=== PATIENT | male | born 1960 | race Caucasian/White ===

== ENCOUNTER 2020-01-13 12:48 | Inpatient (IN) | payer MEDICAID ==
[~2020-01-13] VITALS: Ht 170.2 cm; Wt 81.0 kg
--- NOTE | 2020-01-13 13:38 | NUR ---
[id number] [phone] Monster Lopez-if going home call above.
[2020-01-13] MEDS ORDERED: LORazepam 2 mg/ml vial IV ONE (13:40)
[2020-01-13] MEDS ORDERED: normal saline 1000ML IV soln IVB ONE (13:40)
[2020-01-13] MEDS ORDERED: magnesium 2GM in 50ml NS 50 ML IV ONE (13:40)
[2020-01-13] MEDS ORDERED: levetiracetam inj 1,000 MG in normal saline 100ml IV soln 90 ML IV ONE (13:40)
[2020-01-13 14:17] LABS: EOSINOPHILS # (AUTO) 0.1 X10'3 (0-0.9); LYMPHOCYTES # (AUTO) 0.5 X10'3 (1.1-4.8); WHITE BLOOD COUNT 9.7 X10'3 (4.5-11.0)
[2020-01-13 14:19] LABS: BASOPHILS # (AUTO) 0.1 X10'3 (0-0.2); BASOPHILS % (AUTO) 1.4 % (0-1); EOSINOPHILS % (AUTO) 1.5 % (0-6); HEMATOCRIT 28.3 % (42.0-52.0); HEMOGLOBIN 9.6 g/dl (14.0-17.9); LYMPHOCYTES % (AUTO) 5.1 % (21-51); MEAN CORPUSCULAR HEMOGLOBIN 32.4 PG (27.0-31.0); MEAN CORPUSCULAR HGB CONC 33.8 g/dL (33.0-36.5); MEAN CORPUSCULAR VOLUME 95.7 FL (78-98); MEAN PLATELET VOLUME 8.3 FL (7.4-10.4); MONOCYTES # (AUTO) 0.6 X10'3 (0-0.9); MONOCYTES % (AUTO) 6.6 % (2-12); NEUTROPHILS # (AUTO) 8.3 X10'3 (1.8-7.7); NEUTROPHILS % (AUTO) 85.4 % (42-75); PLATELET COUNT 211 X10'3 (140-440); RED BLOOD COUNT 2.96 X10'6 (4.70-6.10); RED CELL DISTRIBUTION WIDTH 15.7 % (11.5-14.5)
--- NOTE | 2020-01-13 14:27 | NUR ---
PT EKG WAS NOT ABLE TO BE TAKEN BY [employer] BECAUSE PT WAS NOT ABLE TO RELAX.
--- NOTE | 2020-01-13 14:28 | NUR ---
PT TO CT SCAN ,WILL START MG WHEN PT IS BACK.
[2020-01-13 14:46] LABS: ALANINE AMINOTRANSFERASE 15 U/L (12-78); ALBUMIN 2.7 G/DL (3.4-5.0); ALBUMIN/GLOBULIN RATIO 0.7 (1.1-1.5); ALKALINE PHOSPHATASE 54 IU/L (46-116); ANION GAP 16 (8-16); ASPARTATE AMINO TRANSFERASE 24 U/L (10-37); BILIRUBIN,TOTAL 0.2 MG/DL (0.1-1.0); BLOOD UREA NITROGEN 17 MG/DL (7-18); BUN/CREATININE RATIO 7.1 (5.4-32.0); CHLORIDE 102 MMOL/L (99-107); CREATINE KINASE 193 U/L (39-308); CREATININE 2.38 MG/DL (0.60-1.10); ETHANOL < 0.010 GM/DL (0.0-0.010); GLUCOSE 126 MG/DL (70-104); SODIUM 137 MMOL/L (135-145); TOTAL CARBON DIOXIDE 18.9 MMOL/L (24-32); TOTAL PROTEIN 6.7 G/DL (6.4-8.2); eGFR 28 ML/MIN
[2020-01-13 14:51] LABS: CALCIUM 5.9 MG/DL (8.5-10.1)
[2020-01-13] MEDS ORDERED: potassium Cl 20 mEq SR tablet PO STA (15:02)
[2020-01-13] MEDS ORDERED: potassium Cl 10 mEq/100mL bag IV ONE (15:05)
[2020-01-13 15:36] LABS: CLARITY,URINE CLEAR (Clear); COLOR,URINE STRAW (Yellow); GLUCOSE, URINE NEGATIVE (Neg); KETONES,URINE NEGATIVE (Neg); LEUKOCYTE ESTERASE ,URINE NEGATIVE (Neg); NITRITES, URINE NEGATIVE (Neg); OCCULT BLOOD,URINE TRACE-INTACT (Neg); PROTEIN,URINE TRACE mg/dl (Neg); UROBILINOGEN,URINE 0.2 E.U/dL (0.2-1.0)
[2020-01-13 15:37] LABS: UA COLLECTION TYPE VOIDED
[2020-01-13 15:47] LABS: MUCUS STRANDS FEW /LPF (Neg); SQUAMOUS EPITHELIAL CELL,UR FEW /LPF (FEW)
[2020-01-13 15:48] LABS: SPERM MODERATE /HPF (NEGATIVE)
[2020-01-13 15:49] LABS: BACTERIA,URINE FEW /HPF (Neg); RBC,URINE 0-2 /HPF (0-2); WBC,URINE 0-4 /HPF (0-4)
[2020-01-13 15:50] LABS: URINE AMPHETAMINE SCREEN NEGATIVE (Neg); URINE BARBITUATE SCREEN NEGATIVE (Neg); URINE BENZODIAZEPINES SCREEN NEGATIVE (Neg); URINE CANNABINOID SCREEN NEGATIVE (Neg); URINE COCAINE SCREEN NEGATIVE (Neg); URINE METHADONE SCREEN NEGATIVE (Neg); URINE OPIATE SCREEN NEGATIVE (Neg); URINE PHENCYCLIDINE SCREEN NEGATIVE (Neg)
[2020-01-13] MEDS ORDERED: magnesium 4gm in 100ml NS 100 ML IV PRN ×2 (16:00→20:00)
[2020-01-13] MEDS ORDERED: mag hydrox/Alum hydrox/simeth 30ml oral suspension PO PRN (16:00)
[2020-01-13] MEDS ORDERED: acetaminophen 325mg tablet PO PRN ×2 (16:00)
[2020-01-13] MEDS ORDERED: ondansetron/PF 4mg/2ml inj IV PRN (16:00)
[2020-01-13] MEDS ORDERED: magnesium 2GM in 50ml NS 50 ML IV PRN ×2 (16:00→20:00)
[2020-01-13] MEDS ORDERED: calcium chloride 100 MG/1 ML inj IV ONE (16:00)
[2020-01-13] MEDS ORDERED: potassium CL 10mEq/100ml bag 100 ML IV PRN ×2 (16:00)
[2020-01-13] MEDS ORDERED: potassium Cl 20 mEq SR tablet PO PRN (16:00)
[2020-01-13] MEDS ORDERED: haloperidol 5mg tablet PO PRN (16:20)
[2020-01-13] MEDS ORDERED: LORazepam 2 mg/ml vial IV PRN (16:20)
[2020-01-13] MEDS ORDERED: haloperidol lactate 5mg/ml inj IM PRN (16:20)
[2020-01-13] MEDS ORDERED: thiamine inj. 100 MG in normal saline 100ml IV soln 100 ML IV ONE (16:20)
[2020-01-13] MEDS ORDERED: QUET200T30 PO ×2 (16:21)
[2020-01-13] MEDS ORDERED: ALBU18HF2 INH (16:21)
[2020-01-13] MEDS ORDERED: ZOLP10TA PO (16:21)
[2020-01-13] MEDS ORDERED: PANT40TA4 PO (16:21)
[2020-01-13] MEDS ORDERED: GLIP10TA11 PO (16:21)
[2020-01-13] MEDS ORDERED: IBUP-1985 PO (16:21)
[2020-01-13] MEDS ORDERED: HYDR12.55 PO (16:21)
[2020-01-13] MEDS ORDERED: BENA20TA82 PO (16:21)
[2020-01-13 16:28] LABS: MAGNESIUM 0.5 MG/DL (1.5-2.4)
--- NOTE | 2020-01-13 16:32 | NUR ---
dr leger at bedside clarified the order of ca whether to give iv push or dilute in 100 ml of n.s as per md give direct it does not matter will dilute it in 10 cc and give over 10 mins as per pharmacist recommendation.
[2020-01-13] MEDS: normal saline 1000ml 1,000 ML IV SCH (16:42)
--- NOTE | 2020-01-13 16:51 | NUR ---
pt calicum diluted in 100 ml of n.s as it can burna s per nurse story and now its running per gravity.
[2020-01-13] MEDS ORDERED: TRIA60LO11 TOP (17:07)
[2020-01-13] MEDS ORDERED: INSU100I31 SQ (17:07)
[2020-01-13] MEDS ORDERED: MESSAGE TO PHARMACY PO ONE (17:15)
[2020-01-13] MEDS ORDERED: dextrose ORAL solution 15 GM/59 ML bottle PO PRN ×2 (17:15)
[2020-01-13] MEDS ORDERED: glucagon, human recombinant 1mg kit SUBCUT PRN (17:15)
[2020-01-13] MEDS ORDERED: dextrose 50%-water 50ml dispensing syringe IV PRN ×2 (17:15)
[2020-01-13] MEDS ORDERED: insulin Lispro (HumaLOG) vial - multi-dose SQ SCH (17:15)
[2020-01-13 17:45] LABS: HEMOGLOBIN A1C 6.2 % (4.5-6.2)
--- NOTE | 2020-01-13 18:03 | NUR ---
called to give report as per staff its time for change shift,unable to give report.will call back later ,charge nurse radha is aware.
--- NOTE | 2020-01-13 18:27 | NUR ---
Patient in room ED 10. I have received report from LELE Wilhelm and had the opportunity to ask questions and awaiting patient arrival to 302.
[2020-01-13 18:30] VITALS: BP 135/72
--- NOTE | 2020-01-13 19:00 | NUR ---
PATIENT UP TO FLOOR AT 1830. AMBULATED TO BED WITH OUT DIFFICULTY. SLIGHTLY SOB, BUT SATING WELL AT 98 ON ROOM AIR. BELONGINGS PLACED IN BEDSIDE TABLE AND CLOSET. PLACED ON [employer] 58 AND IN SINUS ARRHYTHMIA WITH PROLONGED QT >0.50. PATIENT ALERT AND ORIENTED TO PERSON, PLACE, TIME, AND EVENTS. WILL CONTINUE TO MONITOR CLOSELY.
--- NOTE | 2020-01-13 19:08 | NUR ---
1600 Q4H NEUROCHECK NOT COMPLETED BY LELE RODRIGUEZ IN ED. 1700 BLOOD GLUCOSE CHECK ALSO NOT COMPLETED/ PERFORMED BY SAID RN IN ED. YACHT MASTER NOTIFIED.
--- NOTE | 2020-01-13 19:46 | NUR ---
15 G ORAL GLUCOSE ADMINISTERED. WILL RECHECK BG IN 15 MIN PER PROTOCOL. BOTTLE TESTER AWARE.
[2020-01-13] MEDS: K and/or MAG REPLACEMENT MC SCH (20:00)
--- NOTE | 2020-01-13 20:05 | NUR ---
192 BLOOD GLUCOSE 67. PATIENT HAD NOT EATEN- DINNER TRAY EATEN AND CONSUMED 75%. RECHECKED BLOOD GLUCOSE AT 1939 AND WAS 69. 15 GM ORAL GLUCOSE SHOT ADMINISTERED. BLOOD GLUCOSE AT 1999 127. WILL CONTINUE TO MONITOR CLOSELY.
[2020-01-13] MEDS: insulin glargine (Lantus) pen - multi-dose SQ SCH (21:00)
[2020-01-13] MEDS: magnesium Cl slow-release 64mg tablet PO PRN (21:29)
[2020-01-13] MEDS: quetiapine 100mg tablet PO SCH (21:31)
[2020-01-13] MEDS: potassium Cl 20 mEq SR tablet PO PRN (21:32)
[2020-01-13] MEDS: zolpidem 5mg tablet PO PRN (21:34)
[2020-01-13] MEDS: levetiracetam-NS 1000mg/100ml 100 ML IV SCH (21:35)
[2020-01-13] MEDS: triamcinolone acet 0.1% cream 15gm TP SCH (21:35)
--- NOTE | 2020-01-13 22:13 | NUR ---
NONADMIN LANTUS. PATIENT ON HYPER/HYPOGLYCEMIC PROTOCOL AND HAS NOT MET. BLOOD GLUCOSE 127 HS. WILL CONTINUE TO MONITOR CLOSELY.
[2020-01-13 23:00] VITALS: BP 97/54
[2020-01-14] MEDS: normal saline 1000ml 1,000 ML IV SCH ×3 (01:58→21:58)
[2020-01-14] MEDS: potassium Cl 20 mEq SR tablet PO PRN ×2 (02:05→05:40)
[2020-01-14 02:06] VITALS: BP 97/57
[2020-01-14 05:42] LABS: ALANINE AMINOTRANSFERASE 12 U/L (12-78); ALBUMIN 2.2 G/DL (3.4-5.0); ALBUMIN/GLOBULIN RATIO 0.7 (1.1-1.5); ALKALINE PHOSPHATASE 47 IU/L (46-116); AMYLASE 87 U/L (25-115); ANION GAP 13 (8-16); ASPARTATE AMINO TRANSFERASE 16 U/L (10-37); BILIRUBIN,TOTAL 0.2 MG/DL (0.1-1.0); BLOOD UREA NITROGEN 14 MG/DL (7-18); BUN/CREATININE RATIO 7.5 (5.4-32.0); CALCIUM 6.1 MG/DL (8.5-10.1); CHLORIDE 111 MMOL/L (99-107); CREATININE 1.86 MG/DL (0.60-1.10); GLUCOSE 67 MG/DL (70-104); LIPASE 705 U/L (73-393); MAGNESIUM 1.4 MG/DL (1.5-2.4); PHOSPHORUS 3.9 MG/DL (2.3-4.5); POTASSIUM 3.6 MMOL/L (3.5-5.1); SODIUM 142 MMOL/L (135-145); TOTAL CARBON DIOXIDE 18.4 MMOL/L (24-32); TOTAL PROTEIN 5.5 G/DL (6.4-8.2); eGFR 38 ML/MIN
[2020-01-14 05:50] LABS: % IRON SATURATION 19 % (11-46); IRON 44 UG/DL (53-167); TOTAL IRON BINDING CAPACITY 228 UG/DL (259-388)
[2020-01-14 06:00] VITALS: BP 85/51
[2020-01-14 06:20] LABS: HEMOGLOBIN 8.3 g/dl (14.0-17.9); MEAN CORPUSCULAR HEMOGLOBIN 32.2 PG (27.0-31.0); MEAN CORPUSCULAR HGB CONC 33.2 g/dL (33.0-36.5); MEAN CORPUSCULAR VOLUME 97.2 FL (78-98); MEAN PLATELET VOLUME 8.5 FL (7.4-10.4); PLATELET COUNT 174 X10'3 (140-440); RED BLOOD COUNT 2.57 X10'6 (4.70-6.10); RED CELL DISTRIBUTION WIDTH 16.1 % (11.5-14.5); WHITE BLOOD COUNT 4.5 X10'3 (4.5-11.0)
--- NOTE | 2020-01-14 06:20 | NUR ---
Patient in room PCU 3027. I have received report from Gama ROYAL and had the opportunity to ask questions and assume patient care.
--- NOTE | 2020-01-14 06:35 | NUR ---
250 ML NURSING BOLUS ADMINISTERED. MAP OF 62. WILL RECHECK BP ONCE INFUSED. Addendum: 01/14/20 at 0643 by Mary Johnson RN 90/59 (69) HR 110
--- NOTE | 2020-01-14 06:44 | NUR ---
Problems reprioritized. Patient report given, questions answered & plan of care reviewed with LELE ROE.
[2020-01-14 07:35] LABS: ANISOCYTOSIS 1+; PLATELET ESTIMATE NORMAL; TOTAL CELLS COUNTED 100
[2020-01-14] MEDS: levetiracetam-NS 1000mg/100ml 100 ML IV SCH ×2 (07:50→21:01)
[2020-01-14] MEDS: magnesium Cl slow-release 64mg tablet PO PRN ×2 (07:52→23:31)
[2020-01-14] MEDS: pantoprazole 40mg Tablet.DR PO SCH (07:53)
[2020-01-14] MEDS: quetiapine 100mg tablet PO SCH ×2 (07:53→21:01)
[2020-01-14] MEDS: triamcinolone acet 0.1% cream 15gm TP SCH ×2 (08:00→21:01)
[2020-01-14] MEDS: K and/or MAG REPLACEMENT MC SCH ×2 (08:00→20:00)
[2020-01-14] MEDS ORDERED: pantoprazole 40mg Tablet.DR PO SCH (08:00)
[2020-01-14] MEDS ORDERED: folic acid 1mg/0.2ml inj IV SCH (08:00)
[2020-01-14] MEDS ORDERED: thiamine inj. 100 MG in normal saline 100ml IV soln 100 ML IV SCH (08:00)
[2020-01-14] MEDS ORDERED: MVI, adult No.4 with vit. K 10 ML in dextrose 5% water 500ml 500 ML IV SCH ×2 (08:00)
[2020-01-14 11:00] VITALS: BP 98/55
--- NOTE | 2020-01-14 11:35 | NUR ---
Malnutrition consult. Patient is a 59 year old male with a carb controlled diet, eating 100%. Good appetite. Stated on risk screening that he does not eat a lot. Weight is 81 kg. No prior weight history. No edema. Is edentulous, dentures at home, much each slowly per ST recommendations, BSS was done 01/13. Does not meet more than 2 criteria for malnutrition. Does drink often, per MD note down to 1-2 beers a day previously over 10 beers a day. Will follow. Addendum: 01/14/20 at [address] Amended: Links added.
[2020-01-14 15:00] VITALS: BP 102/59
[2020-01-14] MEDS: HYDROcodone/acetaminophen 5mg/325mg tablet PO PRN ×2 (17:18→23:30)
[2020-01-14 18:00] VITALS: BP 96/55
--- NOTE | 2020-01-14 18:15 | NUR ---
Problems reprioritized. Patient report given, questions answered & plan of care reviewed with Danielle ROYAL.
[2020-01-14] MEDS: insulin glargine (Lantus) pen - multi-dose SQ SCH (21:00)
[2020-01-14] MEDS: zolpidem 5mg tablet PO PRN (21:04)
--- NOTE | 2020-01-14 21:47 | NUR ---
PAGER ID: [phone] MESSAGE: PAWAN Randhawa, 24hr order is up and needs the tele order renewed normally Sinus tachy 110s. Addendum: 01/15/20 at 0132 by Danielle Boudreaux RN 2nd page for renewing tele order. PAGER ID: [phone] MESSAGE: PAWAN Randhawa: 24hr tele order . Patient is usually Sinus Tach 110s, do you want to renew the order? -Danielle [phone]
[2020-01-14 22:00] VITALS: BP 102/60
[2020-01-15] MEDS: normal saline 1000ml 1,000 ML IV SCH ×3 (01:42→22:21)
[2020-01-15] MEDS: magnesium hydroxide 30ml (MOM) UD suspension PO PRN (01:44)
[2020-01-15 02:00] VITALS: BP 93/50
--- NOTE | 2020-01-15 02:55 | NUR ---
called back and said it's ok to have the patient off tele.
[2020-01-15 02:58] LABS: BASOPHILS # (AUTO) 0.1 X10'3 (0-0.2); EOSINOPHILS # (AUTO) 0.3 X10'3 (0-0.9); HEMOGLOBIN 8.9 g/dl (14.0-17.9); LYMPHOCYTES # (AUTO) 1.4 X10'3 (1.1-4.8); MONOCYTES # (AUTO) 0.6 X10'3 (0-0.9); NEUTROPHILS # (AUTO) 1.9 X10'3 (1.8-7.7); RED BLOOD COUNT 2.72 X10'6 (4.70-6.10); WHITE BLOOD COUNT 4.3 X10'3 (4.5-11.0)
[2020-01-15 02:59] LABS: BASOPHILS % (AUTO) 3.4 % (0-1); EOSINOPHILS % (AUTO) 6.2 % (0-6); HEMATOCRIT 26.9 % (42.0-52.0); LYMPHOCYTES % (AUTO) 33.5 % (21-51); MEAN CORPUSCULAR HEMOGLOBIN 32.6 PG (27.0-31.0); MEAN CORPUSCULAR HGB CONC 32.9 g/dL (33.0-36.5); MEAN PLATELET VOLUME 8.3 FL (7.4-10.4); NEUTROPHILS % (AUTO) 43.9 % (42-75); PLATELET COUNT 171 X10'3 (140-440); RED CELL DISTRIBUTION WIDTH 16.5 % (11.5-14.5)
[2020-01-15 03:20] LABS: TOTAL CELLS COUNTED 100
[2020-01-15 03:21] LABS: ANISOCYTOSIS 1+; PLATELET ESTIMATE NORMAL
[2020-01-15 03:25] LABS: GLUCOSE 121 MG/DL (70-104); SODIUM 140 MMOL/L (135-145)
[2020-01-15 03:26] LABS: ALBUMIN 2.2 G/DL (3.4-5.0); ALBUMIN/GLOBULIN RATIO 0.6 (1.1-1.5); ANION GAP 13 (8-16); BILIRUBIN,TOTAL 0.2 MG/DL (0.1-1.0); BLOOD UREA NITROGEN 11 MG/DL (7-18); BUN/CREATININE RATIO 6.6 (5.4-32.0); CALCIUM 6.3 MG/DL (8.5-10.1); CHLORIDE 109 MMOL/L (99-107); CREATININE 1.66 MG/DL (0.60-1.10); MAGNESIUM 0.8 MG/DL (1.5-2.4); POTASSIUM 4.6 MMOL/L (3.5-5.1); TOTAL CARBON DIOXIDE 17.6 MMOL/L (24-32); TOTAL PROTEIN 5.6 G/DL (6.4-8.2); eGFR 43 ML/MIN
[2020-01-15 03:27] LABS: ALANINE AMINOTRANSFERASE 12 U/L (12-78); ALKALINE PHOSPHATASE 50 IU/L (46-116); AMYLASE 104 U/L (25-115); ASPARTATE AMINO TRANSFERASE 19 U/L (10-37); LIPASE 1242 U/L (73-393)
--- NOTE | 2020-01-15 03:48 | NUR ---
Critical Mg 0.8 PAGER ID: [phone] MESSAGE: [facility] [id number] Griffin Randhawa, here for seizures and has critical lab Mg 0.8. Will follow mg protocol. -Danielle [phone]
[2020-01-15 06:00] VITALS: BP 92/59
--- NOTE | 2020-01-15 06:20 | NUR ---
received report from brittany clay
--- NOTE | 2020-01-15 06:31 | NUR ---
Problems reprioritized. Patient report given, questions answered & plan of care reviewed with LELE Alberts .
[2020-01-15] MEDS: pantoprazole 40mg Tablet.DR PO SCH (07:22)
[2020-01-15] MEDS: folic acid 1mg tablet PO SCH (07:23)
[2020-01-15] MEDS: thiamine 100mg tablet PO SCH (07:24)
[2020-01-15] MEDS: multivitamins, therapeutics tablet PO SCH (07:24)
[2020-01-15] MEDS: quetiapine 100mg tablet PO SCH ×2 (07:25→20:08)
[2020-01-15] MEDS: magnesium Cl slow-release 64mg tablet PO PRN ×2 (07:26→12:32)
[2020-01-15] MEDS: levetiracetam-NS 1000mg/100ml 100 ML IV SCH (07:28)
[2020-01-15] MEDS: K and/or MAG REPLACEMENT MC SCH ×2 (07:34→20:00)
[2020-01-15] MEDS: triamcinolone acet 0.1% cream 15gm TP SCH ×2 (08:00→20:44)
[2020-01-15 13:00] VITALS: BP 100/62
--- NOTE | 2020-01-15 14:36 | NUR ---
OFFERED PATIENT MOM TO ASSIST HIM IN HAVING A BM. PATIENT IS REFUSING TO TAKE ANYTHING TO HELP HIM HAVE A BM. WILL CONTINUE TO EDUCATE
[2020-01-15] MEDS: HYDROcodone/acetaminophen 5mg/325mg tablet PO PRN ×2 (16:15→22:13)
[2020-01-15] MEDS ORDERED: LORazepam 1 MG tablet PO PRN (16:20)
[2020-01-15] MEDS ORDERED: LORazepam 2 mg/ml vial IV PRN (16:20)
[2020-01-15 18:00] VITALS: BP 114/69
--- NOTE | 2020-01-15 18:02 | NUR ---
GAVE REPORT TO LELE PRICE
[2020-01-15] MEDS: zolpidem 5mg tablet PO PRN (20:17)
[2020-01-15] MEDS: insulin glargine (Lantus) pen - multi-dose SQ SCH (21:00)
[2020-01-15 22:00] VITALS: BP 116/55
[2020-01-16 02:00] VITALS: BP 102/53
[2020-01-16 06:00] VITALS: BP 111/62
[2020-01-16 06:09] LABS: HEMOGLOBIN 7.9 g/dl (14.0-17.9); MEAN CORPUSCULAR HEMOGLOBIN 32.9 PG (27.0-31.0)
[2020-01-16 06:13] LABS: HEMATOCRIT 23.6 % (42.0-52.0); MEAN CORPUSCULAR HGB CONC 33.5 g/dL (33.0-36.5); MEAN CORPUSCULAR VOLUME 98.2 FL (78-98); MEAN PLATELET VOLUME 8.1 FL (7.4-10.4); PLATELET COUNT 185 X10'3 (140-440); RED CELL DISTRIBUTION WIDTH 16.6 % (11.5-14.5); WHITE BLOOD COUNT 4.7 X10'3 (4.5-11.0)
--- NOTE | 2020-01-16 06:26 | NUR ---
Problems reprioritized. Patient report given, questions answered & plan of care reviewed with LELE Evans.
[2020-01-16 06:30] LABS: ALANINE AMINOTRANSFERASE 9 U/L (12-78); ALBUMIN/GLOBULIN RATIO 0.6 (1.1-1.5); ALKALINE PHOSPHATASE 50 IU/L (46-116); AMYLASE 118 U/L (25-115); ANION GAP 9 (8-16); ASPARTATE AMINO TRANSFERASE 17 U/L (10-37); BILIRUBIN,TOTAL 0.2 MG/DL (0.1-1.0); BLOOD UREA NITROGEN 9 MG/DL (7-18); BUN/CREATININE RATIO 6.3 (5.4-32.0); CALCIUM 6.5 MG/DL (8.5-10.1); CHLORIDE 113 MMOL/L (99-107); CREATININE 1.43 MG/DL (0.60-1.10); GLUCOSE 125 MG/DL (70-104); LIPASE 1407 U/L (73-393); MAGNESIUM 1.6 MG/DL (1.5-2.4); POTASSIUM 5.1 MMOL/L (3.5-5.1); SODIUM 140 MMOL/L (135-145); TOTAL CARBON DIOXIDE 18.3 MMOL/L (24-32); TOTAL PROTEIN 5.3 G/DL (6.4-8.2); eGFR 51 ML/MIN
--- NOTE | 2020-01-16 06:30 | NUR ---
Patient in room PCU 3027. I have received report from LELE Saldana and had the opportunity to ask questions and assume patient care.
[2020-01-16 06:51] LABS: PLATELET ESTIMATE NORMAL; TOTAL CELLS COUNTED 100
[2020-01-16 06:52] LABS: ANISOCYTOSIS 1+; POLYCHROMASIA FEW
[2020-01-16] MEDS: folic acid 1mg tablet PO SCH (07:57)
[2020-01-16] MEDS: quetiapine 100mg tablet PO SCH ×2 (07:57→20:36)
[2020-01-16] MEDS: thiamine 100mg tablet PO SCH (07:57)
[2020-01-16] MEDS: pantoprazole 40mg Tablet.DR PO SCH (07:57)
[2020-01-16] MEDS: multivitamins, therapeutics tablet PO SCH (07:57)
[2020-01-16] MEDS: normal saline 1000ml 1,000 ML IV SCH (07:58)
[2020-01-16] MEDS: triamcinolone acet 0.1% cream 15gm TP SCH ×2 (07:58→19:16)
[2020-01-16] MEDS: K and/or MAG REPLACEMENT MC SCH ×2 (08:00→20:00)
[2020-01-16 15:00] VITALS: BP 129/70
[2020-01-16] MEDS: HYDROcodone/acetaminophen 5mg/325mg tablet PO PRN (15:39)
[2020-01-16 18:00] VITALS: BP 125/76
--- NOTE | 2020-01-16 18:02 | NUR ---
Problems reprioritized. Patient report given, questions answered & plan of care reviewed with LELE Saldana.
--- NOTE | 2020-01-16 18:44 | NUR ---
Patient in room PCU 3027. I have received report from LELE Zapata and had the opportunity to ask questions and assume patient care.
[2020-01-16] MEDS: magnesium hydroxide 30ml (MOM) UD suspension PO PRN (19:16)
[2020-01-16] MEDS: zolpidem 5mg tablet PO PRN (20:36)
[2020-01-16] MEDS: insulin glargine (Lantus) pen - multi-dose SQ SCH (20:58)
[2020-01-16 22:00] VITALS: BP 106/64
[2020-01-17] MEDS: normal saline 1000ml 1,000 ML IV SCH (00:19)
[2020-01-17 02:00] VITALS: BP 101/57
[2020-01-17 05:53] LABS: BASOPHILS # (AUTO) 0.2 X10'3 (0-0.2); EOSINOPHILS # (AUTO) 0.3 X10'3 (0-0.9); EOSINOPHILS % (AUTO) 5.2 % (0-6); HEMOGLOBIN 8.2 g/dl (14.0-17.9); LYMPHOCYTES # (AUTO) 1.4 X10'3 (1.1-4.8); NEUTROPHILS # (AUTO) 2.8 X10'3 (1.8-7.7); WHITE BLOOD COUNT 5.2 X10'3 (4.5-11.0)
[2020-01-17 05:56] LABS: BASOPHILS % (AUTO) 3.1 % (0-1); HEMATOCRIT 24.9 % (42.0-52.0); LYMPHOCYTES % (AUTO) 26.7 % (21-51); MEAN CORPUSCULAR HEMOGLOBIN 32.4 PG (27.0-31.0); MEAN CORPUSCULAR VOLUME 98.2 FL (78-98); MEAN PLATELET VOLUME 7.8 FL (7.4-10.4); MONOCYTES # (AUTO) 0.5 X10'3 (0-0.9); MONOCYTES % (AUTO) 10.1 % (2-12); NEUTROPHILS % (AUTO) 54.9 % (42-75); PLATELET COUNT 208 X10'3 (140-440); RED BLOOD COUNT 2.54 X10'6 (4.70-6.10); RED CELL DISTRIBUTION WIDTH 16.6 % (11.5-14.5)
--- NOTE | 2020-01-17 06:14 | NUR ---
Problems reprioritized. Patient report given, questions answered & plan of care reviewed with LELE Gonzalez.
[2020-01-17 06:15] LABS: ALANINE AMINOTRANSFERASE 12 U/L (12-78); ALBUMIN 2.1 G/DL (3.4-5.0); ALBUMIN/GLOBULIN RATIO 0.6 (1.1-1.5); ALKALINE PHOSPHATASE 55 IU/L (46-116); AMYLASE 115 U/L (25-115); ANION GAP 9 (8-16); ASPARTATE AMINO TRANSFERASE 15 U/L (10-37); BILIRUBIN,TOTAL 0.2 MG/DL (0.1-1.0); BLOOD UREA NITROGEN 7 MG/DL (7-18); BUN/CREATININE RATIO 5.8 (5.4-32.0); CALCIUM 6.9 MG/DL (8.5-10.1); CHLORIDE 113 MMOL/L (99-107); CREATININE 1.21 MG/DL (0.60-1.10); GLUCOSE 109 MG/DL (70-104); LIPASE 866 U/L (73-393); MAGNESIUM 1.4 MG/DL (1.5-2.4); PHOSPHORUS 2.1 MG/DL (2.3-4.5); SODIUM 141 MMOL/L (135-145); TOTAL CARBON DIOXIDE 19.3 MMOL/L (24-32); TOTAL PROTEIN 5.6 G/DL (6.4-8.2); eGFR 62 ML/MIN
--- NOTE | 2020-01-17 06:15 | NUR ---
Patient in room PCU 3027. I have received report from LELE Saldana and had the opportunity to ask questions and assume patient care. Patient asleep in bed and in no acute distress.
[2020-01-17 06:58] LABS: ANISOCYTOSIS 1+; LARGE PLATELETS FEW; PLATELET ESTIMATE NORMAL; TOTAL CELLS COUNTED 100
[2020-01-17 07:00] VITALS: BP 120/83
[2020-01-17] MEDS: pantoprazole 40mg Tablet.DR PO SCH (08:03)
[2020-01-17] MEDS: multivitamins, therapeutics tablet PO SCH (08:03)
[2020-01-17] MEDS: thiamine 100mg tablet PO SCH (08:03)
[2020-01-17] MEDS: folic acid 1mg tablet PO SCH (08:03)
[2020-01-17] MEDS: quetiapine 100mg tablet PO SCH (08:04)
[2020-01-17] MEDS: triamcinolone acet 0.1% cream 15gm TP SCH (08:05)
--- NOTE | 2020-01-17 08:32 | NUR ---
Paged Dr. Ventura regarding patient wanting to leave. PAGER ID: [phone] MESSAGE: [phone]. Griffin Randhawa. Patient would like to leave. Patient reports that they feel fine and want to leave. Thank you. Lisa ROYAL x [phone]
[2020-01-17 10:04] LABS: OCCULT BLOOD STOOL NEGATIVE (Neg)
--- NOTE | 2020-01-17 10:09 | NUR ---
Paged Dr. Ventura regarding patient signing AMA paperwork. PAGER ID: [phone] MESSAGE: [phone]. Griffin Randhawa. Patient signed AMA paperwork and going to leave AMA. Thank you. Lisa ROYAL x [phone]
--- NOTE | 2020-01-17 10:25 | NUR ---
Patient left AMA. Patient educated on risks of leaving AMA, and patient did not want to wait for physician. Patient belongings collected and sent with patient. PIV discontinued and cannula intact. Patient wheeled down to lobby and left via private vehicle.
[2020-01-17] MEDS ORDERED: LORazepam 2 mg/ml vial IV PRN (16:20)
[2020-01-17] MEDS ORDERED: LORazepam 1 MG tablet PO PRN (16:20)
== END 2020-01-17 10:25 | disposition left against medical advice (07) | DRG 53 ==
LOC: ER 12:49 → ED HOLD 15:58 → PCU 3S 18:30
PROVIDERS: ADMIT Family Medicine; ATTEND Internal Medicine
PROC: 4A10X4Z Monitoring of Central Nervous Electrical Activity, External Approach (ICD-10-PCS; principal; 2020-01-14)
DX: G40.89 Other seizures (principal); K85.90 Acute pancreatitis without necrosis or infection, unspecified; N17.9 Acute kidney failure, unspecified; I95.9 Hypotension, unspecified; E83.42 Hypomagnesemia; E83.51 Hypocalcemia; K74.60 Unspecified cirrhosis of liver; D63.8 Anemia in other chronic diseases classified elsewhere; Z53.29 Procedure and treatment not carried out because of patient's decision for other reasons; E86.0 Dehydration; E11.9 Type 2 diabetes mellitus without complications; F32.9 Major depressive disorder, single episode, unspecified; R06.4 Hyperventilation; E78.5 Hyperlipidemia, unspecified; E87.6 Hypokalemia; I10 Essential (primary) hypertension; Z79.4 Long term (current) use of insulin; Z80.3 Family history of malignant neoplasm of breast; Z79.899 Other long term (current) drug therapy
CPT/HCPCS: 36415; 70450; 70551; 80053; 80305; 80320; 81001; 82150; 82272; 82330; 82550; 82948; 83036; 83540; 83550; 83605; 83690; 83735; 84100; 84550; 85025; 85610; 87040; 87081; 92508; 92616; 93005; 95816; 96365; 96368; 96375; 97110; 97116; 97161; 97530; 99285; G0378; J1815; J1953; J2060; J3411; J3475; J3480; J3490; J7030; J7060